=== PATIENT | female | born 1935 | race Caucasian/White ===

== ENCOUNTER 2016-11-04 19:57 | Emergency (ER) | payer OTHER ==
[~2016-11-04 19:57] MED LIST: AMLODIPINE BESY1 C11 PO; ARAVA20 MG PO; BACTRIM DS1 TAB PO; LAC PO; NABUMETONE500 MG PO; TRAMADOL HCL50 MG PO
[2016-11-05 02:30] VITALS: BP 167/95
== END 2016-11-05 02:30 | disposition home or self-care (01) ==
LOC: ED 19:57
DX: T63.481A Toxic effect of venom of other arthropod, accidental (unintentional), initial encounter (principal); M79.644 Pain in right finger(s); I10 Essential (primary) hypertension; Z79.899 Other long term (current) drug therapy; Z79.891 Long term (current) use of opiate analgesic; Z86.73 Personal history of transient ischemic attack (TIA), and cerebral infarction without residual deficits; Z88.0 Allergy status to penicillin; W57.XXXA Bitten or stung by nonvenomous insect and other nonvenomous arthropods, initial encounter; Y93.89 Activity, other specified; Y92.89 Other specified places as the place of occurrence of the external cause; Y99.8 Other external cause status
CPT/HCPCS: 36415; J1885; J2270

== ENCOUNTER 2017-03-21 08:25 | Inpatient (IN) | payer OTHER ==
[~2017-03-21] VITALS: Ht 152.4 cm; Wt 52.4 kg
[2017-03-21] MEDS ORDERED: ARAVA20 MG PO ×2 (08:54→08:57)
[2017-03-21] MEDS ORDERED: ULTRAM50 MG PO (08:54)
[2017-03-21] MEDS ORDERED: PEPCID20 MG PO (08:55)
[2017-03-21] MEDS ORDERED: AMLODIPINE BESY1 CA3 PO (08:55)
[2017-03-21 09:36] LABS: PLATELET COUNT 253 x10^3mcL (130-400)
[2017-03-21 09:39] LABS: RED CELL DISTRIBUTION WIDTH 16.4 % (11.5-14.5)
[2017-03-21 09:40] LABS: rbc morphology (normal/abnorm) ABNORMAL (NORMAL)
[2017-03-21 09:53] LABS: CALCIUM 9.2 mg/dL (8.5-10.1); CARBON DIOXIDE 24.2 mmol/L (21-32); CHLORIDE SERUM 108 mmol/L (98-107); CREATININE SERUM 0.8 mg/dL (0.6-1.0); GLUCOSE SERUM 133 mg/dL (74-106); POTASSIUM SERUM 3.4 mmol/L (3.5-5.1); SODIUM SERUM 141 mmol/L (136-145)
[2017-03-21 09:57] LABS: ALKALINE PHOSPHATASE 92 U/L (46-116); ALT/SGPT 24 U/L (14-59); AMYLASE 26 U/L (25-115); AST/SGOT 27 U/L (15-37); BILIRUBIN TOTAL 0.32 mg/dL (0.20-1.00); LIPASE 127 IU/L (73-393); TOTAL PROTEIN, SERUM 7.1 g/dL (6.4-8.2)
[2017-03-21 10:01] LABS: ALBUMIN 2.8 g/dL (3.4-5.0)
[2017-03-21 10:44] LABS: UA SPECIFIC GRAVITY 1.015 (1.005-1.035); microscopic required? YES; urine erythrocyte NEGATIVE (NEGATIVE)
[2017-03-21 11:54] VITALS: BP 141/65
[2017-03-21 12:19] LABS: CHOLESTEROL/HDL RATIO 5.4; MAGNESIUM 1.9 mg/dL (1.8-2.4); PHOSPHOROUS 2.6 mg/dL (2.5-4.9)
[2017-03-21 12:26] LABS: FREE T4 1.04 ng/dL (0.76-1.46); T4(THYROXINE) 6.2 ug/dL (4.7-13.3)
[2017-03-21 12:28] LABS: T3 TOTAL 1.26 ng/mL
[2017-03-21 18:56] VITALS: BP 133/69
[2017-03-21 21:11] VITALS: BP 142/70
[2017-03-22 05:04] VITALS: BP 143/75
[2017-03-22 06:23] LABS: BASOPHIL % 1.3 % (0-2); PLATELET COUNT 244 x10^3mcL (130-400)
[2017-03-22 06:38] LABS: RED CELL DISTRIBUTION WIDTH 16.2 % (11.5-14.5)
[2017-03-22 06:39] LABS: rbc morphology (normal/abnorm) ABNORMAL (NORMAL)
[2017-03-22 06:43] LABS: CARBON DIOXIDE 20.4 mmol/L (21-32); CHLORIDE SERUM 110 mmol/L (98-107); CREATININE SERUM 0.7 mg/dL (0.6-1.0); GLUCOSE SERUM 90 mg/dL (74-106); MAGNESIUM 1.9 mg/dL (1.8-2.4); POTASSIUM SERUM 3.8 mmol/L (3.5-5.1); SODIUM SERUM 140 mmol/L (136-145)
[2017-03-22 07:48] VITALS: BP 149/74
[2017-03-22 13:54] VITALS: BP 130/64
[2017-03-22 18:08] VITALS: BP 146/63
[2017-03-22 20:53] VITALS: BP 128/67
[2017-03-23 05:49] VITALS: BP 132/67
[2017-03-23 06:49] LABS: BASOPHIL % 1.1 % (0-2); PLATELET COUNT 240 x10^3mcL (130-400)
[2017-03-23 06:56] LABS: RED CELL DISTRIBUTION WIDTH 16.2 % (11.5-14.5)
[2017-03-23 06:57] LABS: rbc morphology (normal/abnorm) ABNORMAL (NORMAL)
[2017-03-23 07:07] LABS: CALCIUM 8.4 mg/dL (8.5-10.1); CARBON DIOXIDE 20.3 mmol/L (21-32); CHLORIDE SERUM 110 mmol/L (98-107); CREATININE SERUM 0.6 mg/dL (0.6-1.0); GLUCOSE SERUM 89 mg/dL (74-106); POTASSIUM SERUM 3.5 mmol/L (3.5-5.1); SODIUM SERUM 142 mmol/L (136-145)
[2017-03-23 08:26] VITALS: BP 141/82
[2017-03-23] MEDS ORDERED: MYLIIL PO (10:58)
[2017-03-23] MEDS ORDERED: PREVACID15 MG PO (10:58)
[2017-03-23 12:07] VITALS: BP 159/70
[2017-03-23 12:25] VITALS: BP 141/82
[2017-03-24] MEDS ORDERED: MAC100 PO ×2 (11:47→14:06)
[2017-03-26 13:47] VITALS: Ht 152.4 cm; Wt 52.4 kg
== END 2017-03-23 13:50 | disposition home or self-care (01) | DRG 444 ==
LOC: ED 08:25 → DU 10:34
PROVIDERS: Emergency Medicine; Family Medicine Sports Medicine; Internal Medicine
PROC: 0F798DZ Dilation of Common Bile Duct with Intraluminal Device, Via Natural or Artificial Opening Endoscopic (ICD-10-PCS; principal; 2017-03-22 08:00)
DX: K83.1 Obstruction of bile duct (principal); E43 Unspecified severe protein-calorie malnutrition; N39.0 Urinary tract infection, site not specified; K29.70 Gastritis, unspecified, without bleeding; K22.2 Esophageal obstruction; K83.8 Other specified diseases of biliary tract; E87.6 Hypokalemia; E78.5 Hyperlipidemia, unspecified; I10 Essential (primary) hypertension; M06.9 Rheumatoid arthritis, unspecified; E05.90 Thyrotoxicosis, unspecified without thyrotoxic crisis or storm; Z68.21 Body mass index [BMI] 21.0-21.9, adult
CPT/HCPCS: 43262; 83880; 84439; 94150; C1769; C2625; J0696; J1610; J1885; J1956; J2175; J2250; J2405; J2704; J3010; J3490; J7030; J7120; Q0092; Q9967

== ENCOUNTER 2017-03-26 14:12 | Inpatient (IN) | payer OTHER ==
[~2017-03-26] VITALS: Ht 152.4 cm; Wt 50.8 kg
[~2017-03-26 14:12] MED LIST changes: +AMLODIPINE BESY1 CA3 PO; +MAC100 PO; +MYLIIL PO; +PEPCID20 MG PO; +PREVACID15 MG PO; +ULTRAM50 MG PO
[2017-03-26 15:09] LABS: BASOPHIL % 0.6 % (0-2); PLATELET COUNT 324 x10^3mcL (130-400)
[2017-03-26 15:12] LABS: RED CELL DISTRIBUTION WIDTH 16.1 % (11.5-14.5)
[2017-03-26 15:20] LABS: CALCIUM 9.1 mg/dL (8.5-10.1); CARBON DIOXIDE 22.1 mmol/L (21-32); CHLORIDE SERUM 104 mmol/L (98-107); GLUCOSE SERUM 104 mg/dL (74-106); POTASSIUM SERUM 3.7 mmol/L (3.5-5.1); SODIUM SERUM 138 mmol/L (136-145)
[2017-03-26 15:50] LABS: UA SPECIFIC GRAVITY 1.025 (1.005-1.035); microscopic required? YES; urine erythrocyte TRACE (NEGATIVE)
[2017-03-26 16:02] LABS: ALBUMIN 3.3 g/dL (3.4-5.0); ALKALINE PHOSPHATASE 91 U/L (46-116); ALT/SGPT 29 U/L (14-59); AST/SGOT 32 U/L (15-37); TOTAL PROTEIN, SERUM 8.1 g/dL (6.4-8.2)
[2017-03-26 16:54] LABS: T3 TOTAL 1.14 ng/mL
[2017-03-26 17:04] LABS: MAGNESIUM 2.3 mg/dL (1.8-2.4); PHOSPHOROUS 2.5 mg/dL (2.5-4.9)
[2017-03-26 17:05] LABS: CHOLESTEROL/HDL RATIO 6.2
[2017-03-26 17:12] LABS: FREE T4 1.1 ng/dL (0.76-1.46); FREE THYROXINE INDEX 2.6 ug/dL (1.4-4.5); T4(THYROXINE) 7.8 ug/dL (4.7-13.3)
[2017-03-26 18:04] VITALS: BP 132/53
[2017-03-26 18:23] LABS: RED BLOOD CELLS 4.76 M/mm3 (4.10-5.10)
[2017-03-26 18:45] LABS: IRON 59 ug/dL (50-170)
[2017-03-26 18:51] LABS: TOTAL IRON BINDING CAPACITY 240 ug/dL (250-450)
[2017-03-26 22:00] VITALS: BP 111/59
[2017-03-27 05:50] VITALS: BP 126/60
[2017-03-27 07:06] LABS: BASOPHIL % 2.2 % (0-2); CALCIUM 8.5 mg/dL (8.5-10.1); CARBON DIOXIDE 18.9 mmol/L (21-32); CHLORIDE SERUM 108 mmol/L (98-107); CREATININE SERUM 0.8 mg/dL (0.6-1.0); GLUCOSE SERUM 78 mg/dL (74-106); PLATELET COUNT 261 x10^3mcL (130-400); POTASSIUM SERUM 3.7 mmol/L (3.5-5.1); RED CELL DISTRIBUTION WIDTH 16.3 % (11.5-14.5); SODIUM SERUM 129 mmol/L (136-145)
[2017-03-27 07:07] LABS: rbc morphology (normal/abnorm) ABNORMAL (NORMAL)
[2017-03-27 09:30] VITALS: BP 117/69
[2017-03-27 13:20] VITALS: BP 115/59
[2017-03-27 17:32] VITALS: BP 100/63
[2017-03-27 19:00] VITALS: Ht 152.4 cm; Wt 50.8 kg
[2017-03-27 21:12] VITALS: BP 126/64
[2017-03-28 05:35] VITALS: BP 120/66
[2017-03-28 06:09] LABS: BASOPHIL % 1.9 % (0-2); PLATELET COUNT 286 x10^3mcL (130-400)
[2017-03-28 06:20] LABS: AMYLASE 57 U/L (25-115); LIPASE 473 IU/L (73-393)
[2017-03-28 06:24] LABS: CALCIUM 8.7 mg/dL (8.5-10.1); CARBON DIOXIDE 20.2 mmol/L (21-32); CHLORIDE SERUM 110 mmol/L (98-107); CREATININE SERUM 0.7 mg/dL (0.6-1.0); GLUCOSE SERUM 81 mg/dL (74-106); PHOSPHOROUS 2.6 mg/dL (2.5-4.9); POTASSIUM SERUM 3.8 mmol/L (3.5-5.1); SODIUM SERUM 143 mmol/L (136-145)
[2017-03-28 06:46] LABS: RED CELL DISTRIBUTION WIDTH 16.6 % (11.5-14.5)
[2017-03-28 12:57] VITALS: BP 103/64
[2017-03-28 16:53] VITALS: BP 110/65
[2017-03-28 21:19] VITALS: BP 143/69
[2017-03-29 05:24] VITALS: BP 122/59
[2017-03-29 09:43] VITALS: BP 118/59
[2017-03-29] MEDS ORDERED: GOOD SENSE OMEP20 MG PO (10:30)
[2017-03-29] MEDS ORDERED: BENTYL10 MG PO (10:31)
[2017-03-29] MEDS ORDERED: BD LACTINEX1.4 MG PO (11:00)
[2017-03-29] MEDS ORDERED: LEVAQUIN750 MG PO (11:01)
[2017-03-29 12:18] VITALS: BP 118/59
== END 2017-03-29 12:50 | disposition home or self-care (01) | DRG 391 ==
LOC: ED 14:12 → DU 16:07
PROVIDERS: Emergency Medicine; Family Medicine; Internal Medicine
PROC: 0DB68ZX Excision of Stomach, Via Natural or Artificial Opening Endoscopic, Diagnostic (ICD-10-PCS; principal; 2017-03-28 07:15)
PROC: 0FPB8DZ Removal of Intraluminal Device from Hepatobiliary Duct, Via Natural or Artificial Opening Endoscopic (ICD-10-PCS; 2017-03-28 07:15)
DX: K29.70 Gastritis, unspecified, without bleeding (principal); N17.0 Acute kidney failure with tubular necrosis; E44.0 Moderate protein-calorie malnutrition; E87.1 Hypo-osmolality and hyponatremia; K21.9 Gastro-esophageal reflux disease without esophagitis; M06.9 Rheumatoid arthritis, unspecified; K44.9 Diaphragmatic hernia without obstruction or gangrene; K57.30 Diverticulosis of large intestine without perforation or abscess without bleeding; I10 Essential (primary) hypertension; M54.5 Low back pain; G89.29 Other chronic pain; D50.9 Iron deficiency anemia, unspecified; E03.9 Hypothyroidism, unspecified; Z68.21 Body mass index [BMI] 21.0-21.9, adult
CPT/HCPCS: 43235; 82962; 83880; 84439; J1200; J1610; J1885; J1956; J2250; J2310; J3010; J3490; J7030; Q9966; Q9967

== ENCOUNTER 2019-03-24 10:57 | Emergency (ER) | payer OTHER, MEDICAID ==
[~2019-03-24] VITALS: Ht 152.4 cm; Wt 47.2 kg
[~2019-03-24 10:57] MED LIST changes: +BD LACTINEX1.4 MG PO; +BENTYL10 MG PO; +GOOD SENSE OMEP20 MG PO; +LEVAQUIN750 MG PO
[2019-03-24 11:02] VITALS: Ht 152.4 cm; Wt 47.2 kg
[2019-03-24 12:55] LABS: BASOPHIL % 0.4 % (0-2); PLATELET COUNT 220 x10^3mcL (130-400)
[2019-03-24 13:06] LABS: RED CELL DISTRIBUTION WIDTH 16.4 % (11.5-14.5)
[2019-03-24 13:28] LABS: CARBON DIOXIDE 25.6 mmol/L (21-32); CHLORIDE SERUM 104 mmol/L (98-107); CREATININE SERUM 0.8 mg/dL (0.6-1.0); GLUCOSE SERUM 88 mg/dL (74-106); POTASSIUM SERUM 3.5 mmol/L (3.5-5.1); SODIUM SERUM 139 mmol/L (136-145); TOTAL PROTEIN, SERUM 7.7 g/dL (6.4-8.2)
[2019-03-24 13:29] LABS: ALBUMIN 3.4 g/dL (3.4-5.0); ALKALINE PHOSPHATASE 94 U/L (46-116); ALT/SGPT 33 U/L (14-59); AST/SGOT 31 U/L (15-37); BILIRUBIN TOTAL 0.4 mg/dL (0.20-1.00); CALCIUM 9.1 mg/dL (8.5-10.1); CHOLESTEROL 219 mg/dL (<200); HDL CHOLESTEROL 39 mg/dL (40-60)
[2019-03-24 14:16] LABS: microscopic required? NO
[2019-03-24 14:27] LABS: UA SPECIFIC GRAVITY <=1.005 (1.005-1.035); urine erythrocyte NEGATIVE (NEGATIVE)
[2019-03-24 15:01] VITALS: BP 142/60
== END 2019-03-24 15:01 | disposition home or self-care (01) ==
LOC: ED 10:57
PROVIDERS: Emergency Medicine
DX: J06.9 Acute upper respiratory infection, unspecified (principal); N39.0 Urinary tract infection, site not specified; I10 Essential (primary) hypertension; M19.90 Unspecified osteoarthritis, unspecified site; Z86.73 Personal history of transient ischemic attack (TIA), and cerebral infarction without residual deficits; Z88.0 Allergy status to penicillin
CPT/HCPCS: 36415; 87804; Q0092